=== PATIENT | male | born 1960 | race Caucasian/White ===

== ENCOUNTER 2017-03-20 10:00 | Emergency (ER) | payer SELFPAY ==
[2017-03-20] MEDS ORDERED: Fosphenytoin(*) 1,000 MG in NS 0.9% 50 ML* 50 ML IVPB ONE (10:10)
[2017-03-20 10:14] LABS: Hematocrit 46 % (42-52); Hemoglobin 15.5 g/dl (14.0-18.0); Mean Corpuscular HGB Conc 34 g/dl (31-36); Mean Corpuscular Hemoglobin 30 pg (27-31); Mean Corpuscular Volume 90 fL (80-94); Mean Platelet Volume 10 um3 (7.4-10.4); Red Blood Count 5.13 10^6/ul (4.0-5.4); Red Cell Distribution Width 14 % (10.5-15); White Blood Count 12.7 10^3/ul (3.5-10.8)
[2017-03-20 10:15] LABS: Add Diff/Slide Review? Slide Review Added; Comments Flag Yes
[2017-03-20] MEDS ORDERED: NS 0.9% 1000 ML* 1,000 ML IV SCH (10:15)
[2017-03-20 10:30] LABS: ALT 28 U/L (7-52); AST 30 U/L (13-39); Albumin 3.7 g/dL (3.2-5.2); Alkaline Phosphatase 56 U/L (34-104); Ammonia 33 mol/L (16-53); Anion Gap 13 mmol/L (2-11); BUN/Creatinine Ratio 15.1 (8-20); Blood Urea Nitrogen 14 mg/dL (6-24); C Reactive Protein 2.93 mg/L (< 5.00); CO2 Carbon Dioxide 18 mmol/L (22-32); Chloride 105 mmol/L (101-111); Creatine Kinase 226 U/L (10-223); EGFR African American 108.1 (>60); Globulin 2.4 g/dL (2-4); Glucose 171 mg/dL (70-100); Lipase 25 U/L (11.0-82.0); Magnesium 1.7 mg/dL (1.9-2.7); Potassium 3.3 mmol/L (3.5-5.0); Sodium 136 mmol/L (133-145); Total Protein 6.1 g/dL (6.4-8.9)
--- NOTE | 2017-03-20 10:30 | RAD ---
HISTORY: Altered mental status COMPARISONS: None TECHNIQUE: Multiple contiguous axial CT scans were obtained of the head without intravenous contrast. FINDINGS: HEMORRHAGE/INFARCT: There is diffuse Sun grade 3 subarachnoid hemorrhage. Elsewhere, there is no hemorrhage or acute infarct. MASSES/SHIFT: There is no mass or shift. EXTRA-AXIAL SPACES: As noted above, there is Sun grade 3 subarachnoid hemorrhage, diffusely including of the basal cisterns. The pattern of hemorrhage is aneurysmal SULCI AND VENTRICLES: The sulci and ventricles are normal in size and position for the patient's stated age. CEREBRUM: There are no focal parenchymal abnormalities. BRAINSTEM: There are no focal parenchymal abnormalities. CEREBELLUM: There are no focal parenchymal abnormalities. VESSELS: The vessels are grossly normal. PARANASAL SINUSES: The paranasal sinuses are clear. ORBITS: The orbits are unremarkable. BONES AND SOFT TISSUE: No bone or soft tissue abnormalities are noted. OTHER: A nasal trumpet is noted IMPRESSION: DIFFUSE, SUN GRADE 3 SUBARACHNOID HEMORRHAGE. THE PATTERN OF HEMORRHAGE SUGGESTS ANEURYSMAL SUBARACHNOID HEMORRHAGE PRELIMINARY FINDINGS WERE DISCUSSED WITH 10:25 AM ON MARCH 20, 2017.
--- NOTE | 2017-03-20 10:34 | RAD ---
HISTORY: Altered mental status, found down COMPARISONS: Head CT dated March 20, 2017 TECHNIQUE: Multiple contiguous axial CT scans were obtained of the cervical spine without intravenous contrast, with coronal and sagittal multiplanar reformations. FINDINGS: BRAIN: Again noted is subarachnoid hemorrhage CENTRAL CANAL: The subarachnoid hemorrhage extends along the cervical cord. The visualized spinal cord is normal in caliber and position. ALIGNMENT: The alignment is normal, without subluxation or dislocation. VERTEBRAL BODIES: There is multilevel anterolateral marginal osteophyte formation most pronounced at C5-C6 and C6-C7. JOINTS: There is uncovertebral and facet osteoarthritis. There is osteoarthritis of the atlantoaxial articulation. MUSCULATURE: Unremarkable INTERVERTEBRAL DISCS: There is diffuse loss of intervertebral disc height. AXIAL IMAGES: C2-C3: There is no osseous neural foraminal narrowing or central canal stenosis. C3-C4: There is bilateral facet hypertrophy. There is mild bilateral neural foraminal narrowing. There is no osseous central canal stenosis. C4-C5: There is right greater than left] vertebral and facet hypertrophy. There is severe right neuroforaminal narrowing. There is no osseous central canal stenosis. C5-C6: There is bilateral, left greater than right, uncovertebral and facet hypertrophy. There is severe left neural foraminal narrowing. There is mild narrowing of the central canal. C6-C7: There is bilateral uncovertebral and facet hypertrophy. There is severe bilateral neural foraminal narrowing. There is mild narrowing of the central canal. C7-T1: There is no osseous neural foraminal narrowing or central canal stenosis. SOFT TISSUES: The visualized soft tissues of the neck are unremarkable. The prevertebral fat stripe is preserved. OTHER: None. IMPRESSION: 1. SUBARACHNOID HEMORRHAGE NOTED ON THE ACCOMPANYING HEAD CT. 2. DEGENERATIVE DISC DISEASE AND OSTEOARTHRITIS. 3. THERE IS MILD NARROWING OF THE CENTRAL CANAL AT C5-C6 AND C6-C7. 4. THERE IS MULTILEVEL NEURAL FORAMINAL NARROWING NOTED ABOVE
[2017-03-20 10:35] LABS: B Type Natriuretic Peptide 34 pg/mL
[2017-03-20 10:36] LABS: Add Path Review? YES; Eosinophils % 2 % (0-6); Neutrophil % 29 % (38-83); RBC Morphology Normal (Normal); Reactive Lymph % 28 % (0-6)
[2017-03-20 10:37] LABS: EBV Response NO
[2017-03-20 10:38] LABS: Troponin I 0.05 ng/mL (<0.04)
[2017-03-20 10:45] LABS: Mono Internal Control QC Line Present
[2017-03-20 10:52] LABS: PCO2 Arterial 24 mmHg (35-45)
[2017-03-20 11:11] LABS: Urine Bacteria Absent (Absent); Urine Bilirubin Negative (Negative); Urine Glucose Negative (Negative); Urine Nitrite Negative (Negative); Urine Sperm Present (Absent)
[2017-03-20 11:11] LABS: Acetaminophen < 15 mcg/mL; Alcohol < 10 mg/dL (<10); Salicylate < 2.50 mg/dL (<30)
--- NOTE | 2017-03-20 11:11 | ED ---
Marlin Phoenix Rebecca, scribed for Fito Chin MD on 03/20/17 at 1012 . Altered Mental Status - HPI Summary HPI Summary: Pt is a 56 y/o M BIBA who presents to ED with AMS characterized as unresponsiveness. Per EMS, he was found this morning by his family in an arm chair, unresponsive and snoring. They began chest compressions with him in the chair. Upon EMS arrival, he was found to have snoring respirations. A nasal trumpet was inserted and EMS administered 2 mg nasal Narcan which did not improve sx. While en route to [facility] ED per EMS, his O2 saturation was between 99 and 100%. Last seen normal at 0900 while drinking coffee. No PMHx IVDA. Level 5 caveat due to AMS characterized as unresponsiveness. - History Of Current Complaint Chief Complaint: EDAltMentalStatus Stated Complaint: UNRESPONSIVE Hx Obtained From: EMS Hx From Patient Unobtainable Due To: Altered Mental Status - Unresponsiveness Character: Responsiveness - Unresponsiveness - Allergies/Home Medications Allergies/Adverse Reactions: Allergies Allergy/AdvReac Type Severity Reaction Status Date / Time No Known Allergies Allergy Verified 03/20/17 10:57 PMH/Surg Hx/FS Hx/Imm Hx Previously Healthy: No - UNKNOWN - Level 5 caveat due to AMS characterized as unresponsiveness Infectious Disease History: Denies: Traveled Outside the [place] in Last 30 Days - Family History Known Family History: Positive: Unknown - Level 5 caveat due to AMS characterized as unresponsiveness - Social History Alcohol Use: None Substance Use Type: Reports: None Smoking Status (MU): Heavy Every Day Tobacco Smoker Review of Systems - ROS Summary Review of Systems Summary: Level 5 caveat due to AMS characterized as unresponsiveness. Positive: Other - Snoring respirations Neurological: Other - AMS - unresponsive All Other Systems Reviewed And Are Negative: No Physical Exam - Summary Physical Exam Summary: Eyes: Pupils are 3 mm and equal and reactive to light Musculoskeletal: Has spontaneous, small movement of the arms and legs Cardiovascular: Tachycardic Respiratory: Lungs clear to auscultation Abdomen: positive bowel sounds Neurological: NIH of 19, see stroke scale GCS: 9 Triage Information Reviewed: Yes Vital Signs On Initial Exam: Initial Vitals Temp Pulse Resp BP Pulse Ox 96.1 F 96 16 124/79 95 03/20/17 10:00 03/20/17 10:00 03/20/17 10:00 03/20/17 10:00 03/20/17 10:00 Vital Signs Reviewed: Yes Completion Of Physical Exam Limited Due To: Altered Mental Status, Level 5 Diagnostics - Vital Signs Vital Signs Temp Pulse Resp BP Pulse Ox 03/20/17 10:49 17 129/86 97 03/20/17 10:30 16 130/90 95 03/20/17 10:18 135/82 03/20/17 10:17 20 96 03/20/17 10:05 17 03/20/17 10:03 124/79 03/20/17 10:00 96.1 F 96 16 124/79 95 - Laboratory Lab Results: Lab Results 03/20/17 03/20/17 03/20/17 Range/Units 10:05 10:05 10:05 WBC 12.7 H (3.5-10.8) 10^3/ul RBC 5.13 (4.0-5.4) 10^6/ul Hgb 15.5 (14.0-18.0) g/dl Hct 46 (42-52) % MCV 90 (80-94) fL MCH 30 (27-31) pg MCHC 34 (31-36) g/dl RDW 14 (10.5-15) % Plt Count 199 (150-450) 10^3/ul MPV 10 (7.4-10.4) um3 Neut % (Auto) 28.5 L (38-83) % Lymph % (Auto) 61.7 H (25-47) % Phelps % (Auto) 6.2 (1-9) % Eos % (Auto) 2.7 (0-6) % Baso % (Auto) 0.9 (0-2) % Absolute Neuts (auto) 3.6 (1.5-7.7) 10^3/ul Absolute Lymphs (auto) 7.8 H (1.0-4.8) 10^3/ul Absolute Monos (auto) 0.8 (0-0.8) 10^3/ul Absolute Eos (auto) 0.3 (0-0.6) 10^3/ul Absolute Basos (auto) 0.1 (0-0.2) 10^3/ul Absolute Nucleated RBC 0.03 10^3/ul Neutrophils % 29 L (38-83) % Lymphocytes % 39 (25-47) % Reactive Lymphs % 28 H (0-6) % Monocytes % 2 (0-13) % Eosinophils % 2 (0-6) % Nucleated RBC % 0.2 Normal RBC Morphology Normal (Normal) Hem Pathologist Commnt Pending INR (Anticoag Therapy) 0.92 (0.89-1.11) APTT 22.4 L (26.0-36.3) seconds D-Dimer, Quantitative > 1050 H (Less Than 230) ng/mL ABG pH (7.35-7.45) ABG pCO2 (35-45) mmHg ABG pO2 (80-100) mmHg ABG HCO3 (19-31) mmol/L ABG O2 Saturation (95-98) % ABG Base Excess (-2.0-2.0) Sodium 136 (133-145) mmol/L Potassium 3.3 L (3.5-5.0) mmol/L Chloride 105 (101-111) mmol/L Carbon Dioxide 18 L (22-32) mmol/L Anion Gap 13 H (2-11) mmol/L BUN 14 (6-24) mg/dL Creatinine 0.93 (0.67-1.17) mg/dL Est GFR ( Amer) 108.1 (>60) Est GFR (Non-Af Amer) 84.0 (>60) BUN/Creatinine Ratio 15.1 (8-20) Glucose 171 H (70-100) mg/dL Calcium 9.0 (8.6-10.3) mg/dL Magnesium 1.7 L (1.9-2.7) mg/dL Total Bilirubin 0.60 (0.2-1.0) mg/dL AST 30 (13-39) U/L ALT 28 (7-52) U/L Alkaline Phosphatase 56 (34-104) U/L Ammonia (16-53) mol/L Total Creatine Kinase 226 H (10-223) U/L CK-MB (CK-2) 8.1 H (0.6-6.3) ng/mL Troponin I 0.05 H* (<0.04) ng/mL C-Reactive Protein 2.93 (< 5.00) mg/L B-Natriuretic Peptide ( - 100) pg/mL Total Protein 6.1 L (6.4-8.9) g/dL Albumin 3.7 (3.2-5.2) g/dL Globulin 2.4 (2-4) g/dL Albumin/Globulin Ratio 1.5 (1-3) Lipase 25 (11.0-82.0) U/L TSH Pending Salicylates Pending Acetaminophen Pending Serum Alcohol Pending Monoscreen Negative (Negative) 03/20/17 03/20/17 Range/Units 10:05 10:40 WBC (3.5-10.8) 10^3/ul RBC (4.0-5.4) 10^6/ul Hgb (14.0-18.0) g/dl Hct (42-52) % MCV (80-94) fL MCH (27-31) pg MCHC (31-36) g/dl RDW (10.5-15) % Plt Count (150-450) 10^3/ul MPV (7.4-10.4) um3 Neut % (Auto) (38-83) % Lymph % (Auto) (25-47) % Phelps % (Auto) (1-9) % Eos % (Auto) (0-6) % Baso % (Auto) (0-2) % Absolute Neuts (auto) (1.5-7.7) 10^3/ul Absolute Lymphs (auto) (1.0-4.8) 10^3/ul Absolute Monos (auto) (0-0.8) 10^3/ul Absolute Eos (auto) (0-0.6) 10^3/ul Absolute Basos (auto) (0-0.2) 10^3/ul Absolute Nucleated RBC 10^3/ul Neutrophils % (38-83) % Lymphocytes % (25-47) % Reactive Lymphs % (0-6) % Monocytes % (0-13) % Eosinophils % (0-6) % Nucleated RBC % Normal RBC Morphology (Normal) Hem Pathologist Commnt INR (Anticoag Therapy) (0.89-1.11) APTT (26.0-36.3) seconds D-Dimer, Quantitative (Less Than 230) ng/mL ABG pH 7.48 H (7.35-7.45) ABG pCO2 24 L (35-45) mmHg ABG pO2 76 L (80-100) mmHg ABG HCO3 22.1 (19-31) mmol/L ABG O2 Saturation 95.9 (95-98) % ABG Base Excess -3.4 L (-2.0-2.0) Sodium (133-145) mmol/L Potassium (3.5-5.0) mmol/L Chloride (101-111) mmol/L Carbon Dioxide (22-32) mmol/L Anion Gap (2-11) mmol/L BUN (6-24) mg/dL Creatinine (0.67-1.17) mg/dL Est GFR ( Amer) (>60) Est GFR (Non-Af Amer) (>60) BUN/Creatinine Ratio (8-20) Glucose (70-100) mg/dL Calcium (8.6-10.3) mg/dL Magnesium (1.9-2.7) mg/dL Total Bilirubin (0.2-1.0) mg/dL AST (13-39) U/L ALT (7-52) U/L Alkaline Phosphatase (34-104) U/L Ammonia 33 (16-53) mol/L Total Creatine Kinase (10-223) U/L CK-MB (CK-2) (0.6-6.3) ng/mL Troponin I (<0.04) ng/mL C-Reactive Protein (< 5.00) mg/L B-Natriuretic Peptide 34 ( - 100) pg/mL Total Protein (6.4-8.9) g/dL Albumin (3.2-5.2) g/dL Globulin (2-4) g/dL Albumin/Globulin Ratio (1-3) Lipase (11.0-82.0) U/L TSH Salicylates Acetaminophen Serum Alcohol Monoscreen (Negative) Result Diagrams: 03/20/17 10:05 03/20/17 10:05 Lab Statement: Any lab studies that have been ordered have been reviewed, and results considered in the medical decision making process. - CT Brain CT CT Interpretation: Positive (See Comments) - DIFFUSE, SUN GRADE 3 SUBARACHNOID HEMORRHAGE. THE PATTERN OF HEMORRHAGE SUGGESTS ANEURYSMAL SUBARACHNOID HEMORRHAGE PRELIMINARY FINDINGS WERE DISCUSSED WITH 10:25 AM ON MARCH 20, 2017. CT Interpretation Completed By: Radiologist C-Spine CT CT Interpretation: Positive (See Comments) - 1. SUBARACHNOID HEMORRHAGE NOTED ON THE ACCOMPANYING HEAD CT. 2. DEGENERATIVE DISC DISEASE AND OSTEOARTHRITIS. 3. THERE IS MILD NARROWING OF THE CENTRAL CANAL AT C5-C6 AND C6 -C7. 4. THERE IS MULTILEVEL NEURAL FORAMINAL NARROWING NOTED ABOVE CT Interpretation Completed By: Radiologist - EKG 1003 Cardiac Rate: NL - bpm EKG Rhythm: Sinus Rhythm EKG Interpretation: ST depressions in the inferior and lateral leads National Institutes Of [employer] - NIH Scale Level of Consciousness: Responds to Minor Stimulation Ask Patient the Month and His/Her Age: Neither Correct/Aphasic Ask Pt to Open/Close Eyes and Waist Cutter/Release Non-Paretic Hand: Both Correctly Best Gaze (Only Horizontal Eye Movement): Normal Visual Field Testing: No Visual Loss Facial Paresis-Pt to Smile & Close Eyes or Grimace Symmetry: Normal/Symmetrical Motor Function - Right Arm: Effort Against [place] Motor Function - Left Arm: Effort Against [place] Motor Function - Right Leg: Effort Against [place] Motor Function - Left Leg: Effort Against [place] Limb Ataxia-Must be out of Proportion to Weakness Present: Present in Two Limbs Sensory (Use Pinprick to Test Arms/Legs/Trunk/Face): Normal Best Language (Describe Picture, Name Items): Severe Aphasia Dysarthria (Read Several Words): Unintelligible or Mute Extinction and Inattention: Profound Lalo-Inattention Total Score: 19 Re-Evaluation - Re-Evaluation First Eval Re-Evaluation Time: 10:20 Comment: With the pt in the CT Suite. Second Eval Re-Evaluation Time: 10:55 Comment: In the room for initiation of Tele-Stroke consultation. Altered Mental Statu Course/Dx - Course Assessment/Plan: Pt is a 56 y/o M BIBA who presents to ED with AMS characterized as unresponsiveness. Per EMS, he was found this morning by his family in an arm chair, unresponsive and snoring. They began chest compressions with him in the chair. Upon EMS arrival, he was found to have snoring respirations. A nasal trumpet was inserted and EMS administered 2 mg nasal Narcan which did not improve sx. While en route to [facility] ED per EMS, his O2 saturation was between 99 and 100%. Last seen normal at 0900. No PMHx IVDA. Level 5 caveat due to AMS characterized as unresponsiveness. Brain CT reveals DIFFUSE, SUN GRADE 3 SUBARACHNOID HEMORRHAGE. THE PATTERN OF HEMORRHAGE SUGGESTS ANEURYSMAL SUBARACHNOID HEMORRHAGE. C-Spine CT reeals 1. SUBARACHNOID HEMORRHAGE NOTED ON THE ACCOMPANYING HEAD CT. 2. DEGENERATIVE DISC DISEASE AND OSTEOARTHRITIS. 3. THERE IS MILD NARROWING OF THE CENTRAL CANAL AT C5-C6 AND C6-C7. 4. THERE IS MULTILEVEL NEURAL FORAMINAL NARROWING NOTED ABOVE. Troponin of 0.05, WBC of 12.7. Discussed with Dr. Remberto Huang at 1010 who will evaluate the pt in the ED. Discussed care of pt with Dr. Heanr, neurologist , at 1021 who advised Tele-Stroke consultation and will evaluate the pt in the ED. Discussed care of pt with Dr. Yancey, radiologist, at 1025 reporting the radiological findings. Called for Tele-Stroke consultation at 1034. Discussed care of pt with Dr. Poncho Pandya at 1105 who accepts pt for transfer. In the ED course, pt received Cerebyx and fluids. He will be transferred to [facility] in [place], [place] via helicopter by [employer] with a Dx of subarachnoid hemorrhage. His family understands and is in agreeance. - Diagnoses Discharge Diagnoses: Subarachnoid hemorrhage During the Visit The Following Alert/Code Occurred: Code Fry - Called at 1007 - Provider Notifications Discussed Care Of Patient With: Remberto Huang Time Discussed With Above Provider: 10:10 Instructed by Provider To: Other - Discussed with Dr. Huang who will evaluate the pt in the ED. Discussed care of pt with Dr. Hearn, neurologist, at 1021 who advised Tele-Stroke consultation and will evaluate the pt in the ED. Discussed care of pt with Dr. Yancey, radiologist, at 1025 reporting the radiological findings. Called for Tele-Stroke consultation at 1034. Discussed care of pt with Dr. Poncho Pandya at 1105 who accepts pt for transfer to [facility] in [place]. - Critical Care Time Critical Care Time: 30-74 min Discharge - Discharge Plan Condition: Guarded Disposition: TRANS HIGHER LVL OF CARE FAC Referrals: No Primary Care Phys,NOPCP [Primary Care Provider] - The documentation as recorded by the Marlin pearl Rebecca accurately reflects the service I personally performed and the decisions made by me, Fito Chin MD.
[2017-03-20 11:21] LABS: Benzodiazepine Urine Screen None Detected (None Detect)
--- NOTE | 2017-03-20 11:26 | RAD ---
HISTORY: Altered mental status COMPARISONS: None VIEWS:1: Single frontal portable view of the chest at 10:01 AM FINDINGS: LINES AND TUBES: None. CARDIOMEDIASTINAL SILHOUETTE: The cardiomediastinal silhouette is normal for portable technique. PLEURA: The costophrenic angles are sharp. No pleural abnormalities are noted. LUNG PARENCHYMA: The lung volumes are low. The lungs are clear accounting for the phase of respiration. ABDOMEN: The upper abdomen is clear. There is no subphrenic gas. BONES AND SOFT TISSUES: No bone or soft tissue abnormalities are noted. IMPRESSION: LOW LUNG VOLUMES. NO ACTIVE CARDIOPULMONARY DISEASE.
[2017-03-20 11:44] VITALS: BP 128/86
== END 2017-03-20 12:00 | disposition short-term general hospital (02) ==
LOC: ED 10:00
DX: R41.82 Altered mental status, unspecified (principal); I60.9 Nontraumatic subarachnoid hemorrhage, unspecified; F17.210 Nicotine dependence, cigarettes, uncomplicated
CPT/HCPCS: 36415; 36600; 70450; 71010; 72125; 80053; 80307; 80320; 80329; 81003; 81015; 82140; 82550; 82553; 82803; 83605; 83690; 83735; 83880; 84443; 84484; 85025; 85060; 85379; 85610; 85730; 86140; 86308; 87040; 93005; 99285; G0480; Q2009